=== PATIENT | male | born 1990 | race Caucasian/White ===

== ENCOUNTER 2023-12-10 21:44 | Inpatient (IN) | payer SELFPAY ==
[2023-12-10 21:51] VITALS: BMI 29.9
[2023-12-10 21:53] VITALS: BP 104/72; PULSE 68; RESP 18; TEMP 36.4; O2SAT 96
[2023-12-10 22:00] VITALS: BP 104/72; PULSE 68; RESP 18; TEMP 36.4; O2SAT 96
[2023-12-10] MEDS: trazodone 50 mg Tablet PO (22:50)
[2023-12-10] MEDS: hyDROXYzine 25 mg Capsule 50 MG PO (22:50)
[2023-12-10] MEDS: OLANZapine 5 mg ODT PO (22:50)
[2023-12-11 06:00] VITALS: BP 117/70; PULSE 79; RESP 16; TEMP 36.6; O2SAT 98
--- NOTE | 2023-12-11 08:06 | PC.NURSE ---
Nursing shift assessment During assessment, patient said that he is with [facility], [place] [facility] He has been with [facility] for 1.5 months. Patient endorses suicidal thoughts, with plan to shoot self. Patient endorses AH; onset was a couple of years ago. The voices tell him to shoot himself. Patient verbally contrasts for safety.
[2023-12-11] MEDS: nicotine 2 mg Gum BUCCAL ×2 (09:30→12:45)
[2023-12-11] MEDS: ARIPiprazole Maintena 400 MG IM (12:50)
--- NOTE | 2023-12-11 12:58 | PC.NURSE ---
Administered Abilify 400mg IM to patient's left ventrogluteal muscle. No adverse reactions. Patient tolerated well. EXP: Feb 2026 LOT: [id number]
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
[2023-12-11 14:00] VITALS: BP 111/71; PULSE 75; RESP 20; TEMP 36.4; O2SAT 97
[2023-12-11 20:05] VITALS: BP 115/62; PULSE 85; RESP 18; TEMP 37.1; O2SAT 97
[2023-12-11] MEDS: amitriptyline 25 mg Tablet PO (20:15)
[2023-12-12 06:00] VITALS: BP 105/70; PULSE 100; RESP 18; TEMP 36.7; O2SAT 98
[2023-12-12] MEDS: nicotine 2 mg Gum BUCCAL ×2 (10:06→16:51)
--- NOTE | 2023-12-12 10:39 | PC.NURSE ---
PATIENT REPORTS DIMINISHED AUDITORY HALLUCINATIONS. PATIENT RATES ANXIETY 3/10, DENIES SI, HI, AND ANXIETY. PATIENT'S GOAL FOR TODAY IS TO WORK ON HIS COPING SKILLS. PATIENT DENIES ANY NEEDS AT THIS TIME. COOPERATIVE DURING ASSESSMENT.
[2023-12-12 14:00] VITALS: BP 116/72; PULSE 75; RESP 20; TEMP 36.9; O2SAT 99
--- NOTE | 2023-12-12 15:48 | W.PM.NPUPNS ---
Subjective NPU Subjective: 33-year-old male admitted with suicidal ideation and auditory hallucinations of a command nature. He had endorsed a history of alcohol abuse as well but reported sobriety for over 3 months. He reported no cravings for alcohol. He had reported having problems with hallucinations that had been stabilized by Abilify Maintena but reports that at one time his psychiatrist had required to the patient to receive additional oral Abilify to complement his intramuscular Abilify. He had reported that the voices continued to be present. He had reported some improvement in sleep with the reinitiation of amitriptyline which had also been helpful he had stated with his depression. There was no episodes of aggression here on the unit. He was compliant and redirectable. Mental Status Exam MSE Comments: The patient is a pleasant tall, white healthy male who appeared his stated age with fair hygiene and good eye contact. There was no evidence of any abnormal involuntary motor movements tics or tremors appreciated. There was evidence of psychomotor retardation. His speech was monotone in quality and normal in volume with some evidence of increased latency and word finding problems noted. His mood was described as better. His affect was flat and mood incongruent. His thought process was linear, logical but at times circumstantial. His thought content showed evidence of suicidal ideation with no plan at this time. He denied any homicidal ideation. He did appear to be responding to internal stimuli and endorsed auditory hallucination. There is no clear evidence of delusional thinking. He was alert and oriented to person place along with year, month, but not day or day of the week. His attention span appeared poor. His insight is poor. His judgment is poor. His impulse control appeared limited. Vitals/I&O/Wt Last Vital Signs Temp 98.4 F 12/12/23 14:00 Pulse 75 12/12/23 14:00 Resp 20 H 12/12/23 14:00 BP 116/72 12/12/23 14:00 Pulse Ox 99 12/12/23 14:00 O2 Del Method Room Air 12/11/23 14:00 Weight last 48 hrs Weight 94.801 kg A&P Assessment and plan (1) Schizoaffective disorder, depressive type: (2) Auditory hallucinations: (3) Suicidal ideation: (4) Alcohol abuse: Plan 33-year-old male with a history of traumatic brain injury along with alcohol abuse currently endorsing command auditory hallucinations with suicidal ideation. This appears to be in the context of his recent absence of Abilify Maintena for over 3 to 4 weeks. #1.? Engage patient in individual milieu and group therapy.? #2? Encourage sober living treatment after discharge at the highest level of care to which he is willing to commit. #3??? CIWA for alcohol withdrawal despite abstinence reported for several months. #4?? TO-15 minute checks? #5?? Will attempt to gather collateral information-including neuropsychiatric testing. May benefit from disability. #6 Abilify Maintena 400mg IM given on 12/11/23. Add Abilify 5mg orally. #7 Continue Amitryptiline 25mg at night as previously used for depression and headaches. Involuntary Hold Information 96 Hour Hold: 96 Hour Involuntary Admission: No Attestations NPU Medical Necessity Statement*: Inpatient hospitalization is medically necessary and deemed to ?be ?the clinically appropriate intervention ?at this time.? We will monitor/initiate medications and make changes as indicated.? The patient?s likely length of stay 5-7 days. Coding Level of Care Code Acute Code for [facility] Fwd Diagnoses Schizoaffective disorder, depressive type F25.1 Auditory hallucinations R44.0 Suicidal ideation R45.851 Alcohol abuse F10.10
[2023-12-12] MEDS: ARIPiprazole 10 mg Tablet 5 MG PO (16:44)
[2023-12-12] MEDS: amitriptyline 25 mg Tablet PO (20:39)
[2023-12-12 22:00] VITALS: BP 118/76; PULSE 82; RESP 15; TEMP 36.6; O2SAT 97
[2023-12-13 06:00] VITALS: BP 94/61; PULSE 57; RESP 14; TEMP 36.4; O2SAT 95
[2023-12-13] MEDS: ARIPiprazole 10 mg Tablet 5 MG PO (08:37)
[2023-12-13 13:56] VITALS: BP 110/71; PULSE 72; RESP 18; TEMP 37.1; O2SAT 98
--- NOTE | 2023-12-13 17:45 | P.NPUPN_ITS ---
Subjective NPU Subjective: 33-year-old male admitted with suicidal ideation and auditory hallucinations of a command nature with history of TBI. The patient had reported that he frequently felt excessively tired and requested stimulants to help with attention and concentration. He had reported that the voices had continued but appeared to be quieter. He reported no side effects from the additional oral Abilify given. He reported no side effects from the Abilify Maintena. He had reported some improved sleep and reduction in headaches with the initiation of amitriptyline. Mental Status Exam MSE Comments: The patient is a pleasant tall, white healthy male who appeared his stated age with fair hygiene and good eye contact. There was no evidence of any abnormal involuntary motor movements tics or tremors appreciated. There was evidence of psychomotor retardation. His speech was monotone in quality and normal in volume with continued evidence of increased latency. His mood was described as better. His affect was flat and mood incongruent. His thought process was linear, logical but at times circumstantial. His thought content showed no evidence of suicidal ideation with no plan at this time. He denied any homicidal ideation. He did not appear to be responding to internal stimuli and endorsed auditory hallucination as being less intense. There is no clear evidence of delusional thinking. He was alert and oriented to person place along with year, month, but not day or day of the week. His attention span appeared poor. His insight is poor. His judgment is poor. His impulse control appeared limited. Vitals/I&O/Wt Last Vital Signs Temp 98.7 F 12/13/23 13:56 Pulse 72 12/13/23 13:56 Resp 18 12/13/23 13:56 BP 110/71 12/13/23 13:56 Pulse Ox 98 12/13/23 13:56 O2 Del Method Room Air 12/13/23 13:56 A&P Assessment and plan (1) Schizoaffective disorder, depressive type: (2) Auditory hallucinations: (3) Suicidal ideation: (4) Alcohol abuse: Plan 33-year-old male with a history of traumatic brain injury along with alcohol abuse currently endorsing command auditory hallucinations with suicidal ideation. This appears to be in the context of his recent absence of Abilify Maintena for over 3 to 4 weeks. #1.? Engage patient in individual milieu and group therapy.? #2? Encourage sober living treatment after discharge at the highest level of care to which he is willing to commit. #3??? CIWA for alcohol withdrawal despite abstinence reported for several months. #4?? TO-15 minute checks? #5?? Will attempt to gather collateral information-including neuropsychiatric testing. May benefit from disability. #6 Abilify Maintena 400mg IM given on 12/11/23. Add Abilify 5mg orally. #7 Increase Amitryptiline 50mg at night as previously used for depression and headaches. Involuntary Hold Information 96 Hour Hold: 96 Hour Involuntary Admission: No Attestations NPU Medical Necessity Statement*: Inpatient hospitalization is medically necessary and deemed to ?be ?the clinically appropriate intervention ?at this time.? We will monitor/initiate medications and make changes as indicated.? The patient?s likely length of stay 4-6 days. Coding Level of Care Code Acute Code for [facility] Fwd Diagnoses Schizoaffective disorder, depressive type F25.1 Auditory hallucinations R44.0 Suicidal ideation R45.851 Alcohol abuse F10.10
[2023-12-13 21:11] VITALS: BP 93/58; PULSE 63; RESP 14; TEMP 36.6; O2SAT 96
[2023-12-14 06:00] VITALS: BP 101/62; PULSE 74; RESP 15; O2SAT 97
[2023-12-14] MEDS: ARIPiprazole 10 mg Tablet PO (08:50)
[2023-12-14] MEDS: nicotine 2 mg Gum BUCCAL (08:50)
[2023-12-14 14:00] VITALS: BP 118/78; PULSE 84; RESP 16; TEMP 36.6; O2SAT 97
--- NOTE | 2023-12-14 14:44 | P.NPUPN_ITS ---
Subjective NPU Subjective: 33-year-old male admitted with suicidal ideation and auditory hallucinations of a command nature with history of TBI. The patient had reported that he felt more lightheaded after taking the additional amitriptyline yesterday. He had reported that it had dropped his blood pressure. He reported that he did not have insurance and stated that the Abilify Maintena had not been available to him due to cost and he was agreeable with remaining on oral Abilify if necessary when stabilized. He had reported that his uncle had and that he was wishing to speak with his father about attending his . He had denied any suicidal thoughts at this time. He had reported that he was considering going back to the [facility] facility to remain sober and the [place] area. Mental Status Exam MSE Comments: The patient is a pleasant tall, white healthy male who appeared his stated age with fair, hygiene and good eye contact. There was no evidence of any abnormal involuntary motor movements tics or tremors appreciated. There was evidence of psychomotor slowing. His speech was monotone in quality and normal in volume with continued evidence of increased latency in speech. His mood was described as okay. His affect was flat. His thought process was linear, logical but at times circumstantial. His thought content showed no evidence of suicidal ideation with no plan at this time. He denied any homicidal ideation. He did not appear to be responding to internal stimuli and endorsed auditory hallucination as being less intense. There is no clear evidence of delusional thinking. He was alert and oriented to person place and time. His attention span appeared poor. His insight is improving. His judgment is poor. His impulse control appeared better. Vitals/I&O/Wt Last Vital Signs Temp 97.8 F 12/14/23 14:00 Pulse 84 12/14/23 14:00 Resp 16 12/14/23 14:00 BP 118/78 12/14/23 14:00 Pulse Ox 97 12/14/23 14:00 O2 Del Method Room Air 12/14/23 06:00 A&P Assessment and plan (1) Schizoaffective disorder, depressive type: (2) Auditory hallucinations: (3) Suicidal ideation: (4) Alcohol abuse: Plan 33-year-old male with a history of traumatic brain injury along with alcohol abuse currently endorsing command auditory hallucinations with suicidal ideation. This appears to be in the context of his recent absence of Abilify Maintena for over 3 to 4 weeks. #1.? Engage patient in individual milieu and group therapy.? #2? Encourage sober living treatment after discharge at the highest level of care to which he is willing to commit. #3??? CIWA for alcohol withdrawal despite abstinence reported for several months. #4?? TO-15 minute checks? #5?? Will attempt to gather collateral information-including neuropsychiatric testing. May benefit from disability. #6 Abilify Maintena 400mg IM given on 12/11/23. Continue abilify 10mg daily. PLAN ON DISCHARGE would likely be to continue Oral Abilify at 15mg to target psychotic symptoms given that patient's maintena is not affordable currently. #7 Reduce amitryptiline to 25mg at night secondary to side effects. Involuntary Hold Information 96 Hour Hold: 96 Hour Involuntary Admission: No Attestations NPU Medical Necessity Statement*: Inpatient hospitalization is medically necessary and deemed to ?be ?the clinically appropriate intervention ?at this time.? We will monitor/initiate medications and make changes as indicated.? The patient?s likely length of stay 2-3 days. Coding Level of Care Code Acute Code for [facility] Fwd Diagnoses Schizoaffective disorder, depressive type F25.1 Auditory hallucinations R44.0 Suicidal ideation R45.851 Alcohol abuse F10.10
[2023-12-14] MEDS: trazodone 50 mg Tablet PO (20:30)
[2023-12-14] MEDS: hyDROXYzine 25 mg Capsule 50 MG PO (20:30)
[2023-12-14] MEDS: amitriptyline 25 mg Tablet PO (20:30)
[2023-12-14 20:38] VITALS: BP 102/64; PULSE 83; RESP 17; TEMP 36.7; O2SAT 97
[2023-12-15 06:00] VITALS: BP 99/62; PULSE 88; RESP 17; TEMP 36.4; O2SAT 96
[2023-12-15] MEDS: ARIPiprazole 10 mg Tablet PO (08:07)
[2023-12-15] MEDS: nicotine 2 mg Gum BUCCAL ×2 (08:07→11:47)
[2023-12-15 14:00] VITALS: BP 113/72; PULSE 70; RESP 18; TEMP 36.9; O2SAT 98
[2023-12-15 19:58] VITALS: BP 110/61; PULSE 80; RESP 18; TEMP 36.6; O2SAT 97
[2023-12-15] MEDS: trazodone 50 mg Tablet PO (20:12)
[2023-12-15] MEDS: amitriptyline 25 mg Tablet PO (20:12)
--- NOTE | 2023-12-15 20:56 | W.PM.NPUPNS ---
Subjective NPU Subjective: Patient presented today reporting that he is doing okay. He is a little frustrated that he did not get transferred to sober living today. Otherwise he reports that his medication is working effectively and he denied any side effects. We discussed the likelihood of discharge on Monday with the facilities return and start taking calls. Mental Status Exam MSE Comments: This is an overweight white male in hospital scrubs with limited grooming and eye contact. No abnormal movements except for mild psychomotor retardation. Cooperative with exam and no acute distress. Speech was slightly decreased rate and volume. Mood described as okay, affect slightly subdued. Thought process organized. Thought content: Patient denied suicidal or homicidal ideation, there were no delusions reported or noted, he denied any auditory or visual hallucinations. Attention and concentration are intact and memory is mostly reliable but none were formally tested. He is alert and oriented x 3. Insight and judgment are improving and impulse control is limited. Vitals/I&O/Wt Last Vital Signs Temp 97.9 F 12/15/23 19:58 Pulse 80 12/15/23 19:58 Resp 18 12/15/23 19:58 BP 110/61 12/15/23 19:58 Pulse Ox 97 12/15/23 19:58 O2 Del Method Room Air 12/15/23 19:58 A&P Assessment and plan (1) Schizoaffective disorder, depressive type: (2) Auditory hallucinations: (3) Suicidal ideation: (4) Alcohol abuse: Plan 33-year-old male with a history of traumatic brain injury along with alcohol abuse currently endorsing command auditory hallucinations with suicidal ideation. This appears to be in the context of his recent absence of Abilify Maintena for over 3 to 4 weeks. #1.? Engage patient in individual milieu and group therapy.? #2? Encourage sober living treatment after discharge at the highest level of care to which he is willing to commit. #3??? CIWA for alcohol withdrawal despite abstinence reported for several months. #4?? TO-15 minute checks? #5?? Will attempt to gather collateral information-including neuropsychiatric testing. May benefit from disability. #6 Abilify Maintena 400mg IM given on 12/11/23. Continue abilify 10mg daily. PLAN ON DISCHARGE would likely be to continue Oral Abilify at 15mg to target psychotic symptoms given that patient's maintena is not affordable currently. #7 Reduce amitryptiline to 25mg at night secondary to side effects. #8 likely discharge to sober living on Monday. Involuntary Hold Information 96 Hour Hold: 96 Hour Involuntary Admission: No Attestations NPU Medical Necessity Statement*: Inpatient hospitalization is medically necessary and?the clinically appropriate intervention at this time.? We will monitor/initiate medications and make changes as indicated.? The patient?s likely length of stay 3-4 days. Coding Level of Care Code Acute Code for [facility] Fwd Diagnoses Schizoaffective disorder, depressive type F25.1 Auditory hallucinations R44.0 Suicidal ideation R45.851 Alcohol abuse F10.10
[2023-12-16 06:00] VITALS: BP 108/62; PULSE 92; RESP 18; TEMP 36.6; O2SAT 97
[2023-12-16] MEDS: nicotine 2 mg Gum BUCCAL ×2 (08:29→14:13)
[2023-12-16] MEDS: ARIPiprazole 10 mg Tablet PO (08:30)
--- NOTE | 2023-12-16 09:35 | PC.NURSE ---
t states hearing voices right now and it is the Black Doctor who was here last night. when this rn vascular stated Sarthak he stated yes. Raymundo De León is being very disrespectful and I want to file a complaint against him can I speak with the Dr. above him? when I asked him what Dr. De León was saying Pt stated he is calling me a punk ass bitch and telling me He is [place] and that I am [place] and I want to talk with a Dr. above him.I explained to pt that Dr. De León is not in the hospital at this time so the possibility he is hearing his voice saying this is not plausible. then When I explained to him that Sarthak is the help desk assistant here at the hospital but he could speak with our marshmallow maker Nurse or Assistant Professor Sculpture if he would like pt stated no they are not above him and I need someone above him. at that time pt got up from the bed and left room. upone going to nurses station this anesthesiologist assistant informed Live Study Manager of pt condition. then left to go do further assessments of pts. pt at that time called me into room stated he wanted to talk with the rooming house operator because how would he know that Dr. De León was [place] unless he told him. I informed pt that Dr. De León was not [place] that he was with children and the pt then stated oh he is a pseudo [place] then , I need to file an complaint. attempted to explain to pt that Dr. De León Is not in the hospital at this time so there is no way he could be hearing him speak to him pt said well I know he is speaking to me. I want to talk with the rooming house operator. at that time I notified integrated logistics support manager who called Assistant Professor Sculpture. When she came Down We explained to Her the situation an that by her talking with the patient would help deescalate and reorientate him.
--- NOTE | 2023-12-16 12:08 | P.NPUPN_ITS ---
Subjective NPU Subjective: Patient presented today reporting that he was feeling okay and is hopeful that things automatic glove turner and former well on Monday. There were reports by staff that he was having some either dreams or intrusive thoughts that this teletypewriter installer was saying negative things about him or that he heard this teletypewriter installer's voice when I was not even in the hospital. He denied this on direct evaluation and denied any issues. He denied any side effects of medications either. Mental Status Exam MSE Comments: This is an overweight white male in hospital scrubs with limited grooming and eye contact. No abnormal movements except for mild psychomotor retardation. Cooperative with exam and no acute distress. Speech was slightly decreased rate and volume. Mood described as okay, affect slightly subdued. Thought process organized. Thought content: Patient denied suicidal or homicidal ideation, there were no delusions reported or noted, he denied any auditory or visual hallucinations. Attention and concentration are intact and memory is mostly reliable but none were formally tested. He is alert and oriented x 3. Insight and judgment are improving and impulse control is limited. Vitals/I&O/Wt Last Vital Signs Temp 97.8 F 12/16/23 06:00 Pulse 92 12/16/23 06:00 Resp 18 12/16/23 06:00 BP 108/62 12/16/23 06:00 Pulse Ox 97 12/16/23 06:00 O2 Del Method Room Air 12/16/23 06:00 A&P Assessment and plan (1) Schizoaffective disorder, depressive type: (2) Auditory hallucinations: (3) Suicidal ideation: (4) Alcohol abuse: Plan 33-year-old male with a history of traumatic brain injury along with alcohol abu se currently endorsing command auditory hallucinations with suicidal ideation. This appears to be in the context of his recent absence of Abilify Maintena for over 3 to 4 weeks. #1.? Engage patient in individual milieu and group therapy.? #2? Encourage sober living treatment after discharge at the highest level of care to which he is willing to commit. #3??? CIWA for alcohol withdrawal despite abstinence reported for several months. #4?? TO-15 minute checks? #5?? Will attempt to gather collateral information-including neuropsychiatric testing. May benefit from disability. #6 Abilify Maintena 400mg IM given on 8/5/24. Continue abilify 10mg daily. PLAN ON DISCHARGE would likely be to continue Oral Abilify at 15mg to target psychotic symptoms given that patient's maintena is not affordable currently. #7 Reduce amitryptiline to 25mg at night secondary to side effects. #8 likely discharge to sober living on Monday. Involuntary Hold Information 96 Hour Hold: 96 Hour Involuntary Admission: No Attestations NPU Medical Necessity Statement*: Inpatient hospitalization is medically necessary and?the clinically appropriate intervention at this time.? We will monitor/initiate medications and make changes as indicated.? The patient?s likely length of stay 2-4 days. Coding Level of Care Code Acute Code for [facility] Diagnoses Schizoaffective disorder, depressive type F25.1 Auditory hallucinations R44.0 Suicidal ideation R45.851 Alcohol abuse F10.10
[2023-12-16 14:00] VITALS: BP 124/77; PULSE 88; RESP 18; TEMP 36.6; O2SAT 98
[2023-12-16] MEDS: trazodone 50 mg Tablet PO (20:13)
[2023-12-16] MEDS: amitriptyline 25 mg Tablet PO (20:13)
[2023-12-16 20:39] VITALS: BP 122/76; PULSE 89; RESP 17; TEMP 36.7; O2SAT 98
[2023-12-17 06:00] VITALS: BP 101/57; PULSE 77; RESP 15; TEMP 36.6; O2SAT 97
[2023-12-17] MEDS: ARIPiprazole 10 mg Tablet PO (08:59)
--- NOTE | 2023-12-17 09:13 | W.PM.NPUPNS ---
Subjective NPU Subjective: Patient presented today reporting that he is doing okay. He was being more social and was out on the unit playing cards with other patients. He had another episode of feeling like he was experiencing some voice projections from this mortgage or loan underwriter but he was able to work through that and even interact with this mortgage or loan underwriter out on the unit in a positive way for an extended period of time. He is reporting that his medication is working fine without issue. He denied any side effects to his medication and we discussed the possibility of discharge tomorrow. Mental Status Exam MSE Comments: This is an overweight white male in hospital scrubs with limited grooming and eye contact. No abnormal movements except for mild psychomotor retardation. Cooperative with exam and no acute distress. Speech was slightly decreased rate and volume. Mood described as okay, affect slightly subdued. Thought process organized. Thought content: Patient denied suicidal or homicidal ideation, there were no delusions reported or noted, he denied any auditory or visual hallucinations. Attention and concentration are intact and memory is mostly reliable but none were formally tested. He is alert and oriented x 3. Insight and judgment are improving and impulse control is limited. Vitals/I&O/Wt Last Vital Signs Temp 97.9 F 12/17/23 06:00 Pulse 77 12/17/23 06:00 Resp 15 12/17/23 06:00 BP 101/57 12/17/23 06:00 Pulse Ox 97 12/17/23 06:00 O2 Del Method Room Air 12/17/23 06:00 Weight last 48 hrs Weight 88.36 kg A&P Assessment and plan (1) Schizoaffective disorder, depressive type: (2) Auditory hallucinations: (3) Suicidal ideation: (4) Alcohol abuse: Plan 33-year-old male with a history of traumatic brain injury along with alcohol abuse currently endorsing command auditory hallucinations with suicidal ideation. This appears to be in the context of his recent absence of Abilify Maintena for over 3 to 4 weeks. #1.? Engage patient in individual milieu and group therapy.? #2? Encourage sober living treatment after discharge at the highest level of care to which he is willing to commit. #3??? CIWA for alcohol withdrawal despite abstinence reported for several months. #4?? TO-15 minute checks? #5?? Will attempt to gather collateral information-including neuropsychiatric testing. May benefit from disability. #6 Abilify Maintena 400mg IM given on 12/11/23. Continue abilify 10mg daily. PLAN ON DISCHARGE would likely be to continue Oral Abilify at 15mg to target psychotic symptoms given that patient's maintena is not affordable currently. #7 Reduce amitryptiline to 25mg at night secondary to side effects. #8 likely discharge to sober living on Monday. Involuntary Hold Information 96 Hour Hold: 96 Hour Involuntary Admission: No Attestations NPU Medical Necessity Statement*: Inpatient hospitalization is medically necessary and?the clinically appropriate intervention at this time.? We will monitor/initiate medications and make changes as indicated.? The patient?s likely length of stay 2-4 days. Coding Level of Care Code Acute Code for [facility] Fwd Diagnoses Schizoaffective disorder, depressive type F25.1 Auditory hallucinations R44.0 Suicidal ideation R45.851 Alcohol abuse F10.10
[2023-12-17 14:00] VITALS: BP 111/75; PULSE 81; RESP 16; TEMP 36.5; O2SAT 97
--- NOTE | 2023-12-17 15:54 | PC.NURSE ---
pt states hearing voices right now and it is the Black Doctor who was here last night. Pt did calm down and quit talking about this, pt did not wish to take any meds to help with the voices.
[2023-12-17] MEDS: trazodone 50 mg Tablet PO (20:10)
[2023-12-17] MEDS: amitriptyline 25 mg Tablet PO (20:13)
[2023-12-18 06:00] VITALS: BP 121/76; PULSE 82; RESP 18; TEMP 36.8; O2SAT 97
[2023-12-18] MEDS: ARIPiprazole 10 mg Tablet PO ×2 (07:40→15:38)
[2023-12-18] MEDS: nicotine 2 mg Gum BUCCAL (07:40)
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
[2023-12-18 13:47] VITALS: BP 110/73; PULSE 81; RESP 16; TEMP 36.5; O2SAT 97
[2023-12-18] MEDS: OLANZapine 5 mg ODT PO (15:38)
[2023-12-18 21:54] VITALS: BP 104/63; PULSE 78; RESP 15; O2SAT 96
--- NOTE | 2023-12-18 22:25 | W.PM.NPUPNS ---
Subjective NPU Subjective: Patient presented today reporting that he is doing okay. He continued to have some experiences that he relayed to staff but not to this screenplay writer. We discussed the risks, benefits and alternatives of increasing his Abilify oral to 20 mg p.o. daily and continuing with the cross cover and he understood and agreed to proceed as is documented in this note. We discussed trying to identify whether or not he would be able to get the injection or not and planning accordingly at discharge. He denied any side effects of the medication. Mental Status Exam MSE Comments: This is an overweight white male in hospital scrubs with limited grooming and eye contact. No abnormal movements except for mild psychomotor retardation. Cooperative with exam and no acute distress. Speech was slightly decreased rate and volume. Mood described as okay, affect slightly subdued. Thought process organized. Thought content: Patient denied suicidal or homicidal ideation, there were no delusions reported or noted, he denied any auditory or visual hallucinations. Attention and concentration are intact and memory is mostly reliable but none were formally tested. He is alert and oriented x 3. Insight and judgment are improving and impulse control is limited. Vitals/I&O/Wt Last Vital Signs Temp 97.7 F 12/18/23 13:47 Pulse 78 12/18/23 21:54 Resp 15 12/18/23 21:54 BP 104/63 12/18/23 21:54 Pulse Ox 96 12/18/23 21:54 O2 Del Method Room Air 12/18/23 21:54 A&P Assessment and plan (1) Schizoaffective disorder, depressive type: (2) Auditory hallucinations: (3) Suicidal ideation: (4) Alcohol abuse: Plan 33-year-old male with a history of traumatic brain injury along with alcohol abuse currently endorsing command auditory hallucinations with suicidal ideation. This appears to be in the context of his recent absence of Abilify Maintena for over 3 to 4 weeks. #1.? Engage patient in individual milieu and group therapy.? #2? Encourage sober living treatment after discharge at the highest level of care to which he is willing to commit. #3??? CIWA for alcohol withdrawal despite abstinence reported for several months. #4?? TO-15 minute checks? #5?? Will attempt to gather collateral information-including neuropsychiatric testing. May benefit from disability. #6 Abilify Maintena 400mg IM given on 12/11/23. Continue abilify 10mg daily. Increase to 20 mg. Will plan on coadministration of oral Abilify until 12/25/2023. PLAN ON DISCHARGE would likely be to continue Oral Abilify at 15mg to target psychotic symptoms given that patient's maintena is not affordable currently. #7 Reduce amitryptiline to 25mg at night secondary to side effects. #8 likely discharge to sober living on Monday. Involuntary Hold Information 96 Hour Hold: 96 Hour Involuntary Admission: No Attestations NPU Medical Necessity Statement*: Inpatient hospitalization is medically necessary and?the clinically appropriate intervention at this time.? We will monitor/initiate medications and make changes as indicated.? The patient?s likely length of stay 2-4 days. Coding Level of Care Code Acute Code for [facility] Fwd Diagnoses Schizoaffective disorder, depressive type F25.1 Auditory hallucinations R44.0 Suicidal ideation R45.851 Alcohol abuse F10.10
[2023-12-19 06:00] VITALS: BP 110/72; PULSE 60; RESP 16; TEMP 36.7; O2SAT 98
--- NOTE | 2023-12-19 08:27 | PC.NURSE ---
Patient irritable this morning. He stated he is hearing the black doctor's son calling him a faggot . He asked, he's got two kids. How else would I know that? Patient said he did not plan on hurting anyone, but that he wasn't gonna put up with that shit . He denies si/hi and vh.
[2023-12-19] MEDS: ARIPiprazole 10 mg Tablet 20 MG PO (09:05)
[2023-12-19] MEDS: nicotine 2 mg Gum BUCCAL ×2 (12:06→20:11)
[2023-12-19 14:00] VITALS: BP 92/63; PULSE 81; RESP 17; TEMP 36.6; O2SAT 98
--- NOTE | 2023-12-19 16:20 | P.NPUPN_ITS ---
Subjective NPU Subjective: Patient presented today reporting that he was fine initially but then for the first time reported to this race and sports book writer that topics that he had been bringing up to other staff. Staff continue to report delusional beliefs related to this race and sports book writer and my family. He advised me that I needed to speak to my son and then my son with no what the topic was about. Then went on to say that it was illegal to share his information with my family and talked about possibly getting a panel saw operator to [facility] by phone to improve his point. Mental Status Exam MSE Comments: This is an overweight white male in hospital scrubs with limited grooming and eye contact. No abnormal movements except for mild psychomotor retardation. Cooperative with exam and no acute distress. Speech was slightly decreased rate and volume. Mood described as okay, affect slightly subdued. Thought process organized. Thought content: Patient denied suicidal or homicidal ideation, there were no delusions reported but he did endorse believing that somehow he was aware that this race and sports book writer was communicating with my children on text about his HIPAA protected information, he denied visual hallucinations, however he did report auditory hallucinations related to this race and sports book writer. Attention and concentration are intact and memory is mostly reliable but none were formally tested. He is alert and oriented x 3. Insight and judgment are improving and impulse control is limited. Vitals/I&O/Wt Last Vital Signs Temp 97.9 F 12/19/23 14:00 Pulse 81 12/19/23 14:00 Resp 17 12/19/23 14:00 BP 92/63 12/19/23 14:00 Pulse Ox 98 12/19/23 14:00 O2 Del Method Room Air 12/19/23 14:00 A&P Assessment and plan (1) Schizoaffective disorder, depressive type: (2) Auditory hallucinations: (3) Suicidal ideation: (4) Alcohol abuse: Plan 33-year-old male with a history of traumatic brain injury along with alcohol abuse currently endorsing command auditory hallucinations with suicidal ideation. This appears to be in the context of his recent absence of Abilify Maintena for over 3 to 4 weeks. #1.? Engage patient in individual milieu and group therapy.? #2? Encourage sober living treatment after discharge at the highest level of care to which he is willing to commit. #3??? CIWA for alcohol withdrawal despite abstinence reported for several months. #4?? TO-15 minute checks? #5?? Will attempt to gather collateral information-including neuropsychiatric testing. May benefit from disability. #6 Abilify Maintena 400mg IM given on 12/11/23. Continue abilify 10mg daily. Increase to 20 mg. Will plan on coadministration of oral Abilify until 12/25/2023. PLAN ON DISCHARGE would likely be to continue Oral Abilify at 15mg to target psychotic symptoms given that patient's maintena is not affordable currently. #7 Reduce amitryptiline to 25mg at night secondary to side effects. #8 Concerns for ongoing psychosis with some worsening will consider 96-hour hold. Involuntary Hold Information 96 Hour Hold: 96 Hour Involuntary Admission: No Attestations NPU Medical Necessity Statement*: Inpatient hospitalization is medically necessary and?the clinically appropriate intervention at this time.? We will monitor/initiate medications and make changes as indicated.? The patient?s likely length of stay 2-4 days. Coding Level of Care Code Acute Code for [facility]wd Diagnoses Schizoaffective disorder, depressive type F25.1 Auditory hallucinations R44.0 Suicidal ideation R45.851 Alcohol abuse F10.10
[2023-12-19 19:28] VITALS: BP 102/70; PULSE 80; RESP 17; TEMP 36.3; O2SAT 94
[2023-12-19] MEDS: amitriptyline 25 mg Tablet PO (20:11)
[2023-12-19] MEDS: trazodone 50 mg Tablet PO (20:11)
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
[2023-12-20 06:00] VITALS: PULSE 93; RESP 18; TEMP 36.4; O2SAT 98
--- NOTE | 2023-12-20 06:30 | PC.NURSE ---
As this CRAP GAME BOX PERSON and a COLOR MATCHER were attempting to take pt vitals, pt asked where is that n*gger doctor? Pt was informed that the doctor was not present and usually arrives to the unit around mid morning time to which pt then got agitated and stated well I know he his here, because I can hear him and I want to go home. Pt was told he would have to talk with the doctor about discharge when he arrives to the unit which agitated the pt and he proceded to rip the blood pressure cuff / pulse ox off and threw them down and stomp off.
[2023-12-20] MEDS: ARIPiprazole 10 mg Tablet 20 MG PO (08:28)
--- NOTE | 2023-12-20 08:34 | PC.NURSE ---
pt stating I am still hearing voices but I thinks I always will because when I was in [facility], there was a nurse there who knew about the voices that were put there by the individuals who puts bugs inside to gather information and she said the only way you can get the voices to stop is through surgery but I dont want to do that.
[2023-12-20] MEDS: nicotine 2 mg Gum BUCCAL ×3 (11:07→18:17)
[2023-12-20 12:42] VITALS: BP 151/82; PULSE 81; RESP 16; TEMP 36.5; O2SAT 99
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
[2023-12-20 19:40] VITALS: BP 121/75; PULSE 75; RESP 16; TEMP 36.7; O2SAT 99
[2023-12-20] MEDS: amitriptyline 25 mg Tablet PO (21:34)
[2023-12-21 06:00] VITALS: BP 92/62; PULSE 82; RESP 17; TEMP 36.6; O2SAT 98
[2023-12-21] MEDS: OLANZapine 5 mg ODT PO (08:49)
[2023-12-21] MEDS: ARIPiprazole 10 mg Tablet 20 MG PO (08:49)
--- NOTE | 2023-12-21 10:13 | PC.NURSE ---
IN BED RESTING AROUSES TO VOICE. PT DENIES PAIN. DENIES SI/HI AND VH AT THIS TIME. PT CONTINUES TO ENDORSE HEARING VOICES THAT ARE NEGATIVE IN NATURE. PT WAS OFFERED MEDICATIONS TO DECREASE THE VOICES AND ANXIETY IT CAUSES. PT DID ACCEPT AND MED NURSE GAVE ZYDIS 5 MG ORDERED FOR ANXIETY. RATES ANXIETY 0/10 AND DEPRESSION 0/10. SUPPORT VOICED.
--- NOTE | 2023-12-21 12:05 | W.PM.NPUPNS ---
Subjective NPU Subjective: Patient presented today reporting that he is fine except for the fact that he feels continued persecution by this promotion writer and his family. He could not really talk to this promotion writer for a long without signs of his irritability and anger surfacing. He continued to say that this promotion writer needed to talk to my son because of what BMI son are doing to him. Mental Status Exam MSE Comments: This is an overweight white male in hospital scrubs with limited grooming and eye contact. No abnormal movements except for mild psychomotor retardation. Cooperative with exam and no acute distress. Speech was slightly decreased rate and volume. Mood described as okay, affect slightly subdued. Thought process organized. Thought content: Patient denied suicidal or homicidal ideation, there were no delusions reported but he did endorse believing that somehow he was aware that this promotion writer was communicating with my children on text about his HIPAA protected information, he denied visual hallucinations, however he did report auditory hallucinations related to this promotion writer. Attention and concentration are intact and memory is mostly reliable but none were formally tested. He is alert and oriented x 3. Insight and judgment are improving and impulse control is limited. Vitals/I&O/Wt Last Vital Signs Temp 97.9 F 12/21/23 06:00 Pulse 82 12/21/23 06:00 Resp 17 12/21/23 06:00 BP 92/62 12/21/23 06:00 Pulse Ox 98 12/21/23 06:00 O2 Del Method Room Air 12/20/23 12:42 A&P Assessment and plan (1) Schizoaffective disorder, depressive type: (2) Auditory hallucinations: (3) Suicidal ideation: (4) Alcohol abuse: Plan 33-year-old male with a history of traumatic brain injury along with alcohol abuse currently endorsing command auditory hallucinations with suicidal ideation. This appears to be in the context of his recent absence of Abilify Maintena for over 3 to 4 weeks. #1.? Engage patient in individual milieu and group therapy.? #2? Encourage sober living treatment after discharge at the highest level of care to which he is willing to commit. #3??? CIWA for alcohol withdrawal despite abstinence reported for several months. #4?? TO-15 minute checks? #5?? Will attempt to gather collateral information-including neuropsychiatric testing. May benefit from disability. #6 Abilify Maintena 400mg IM given on 12/11/23. Continue abilify 10mg daily. Increase to 20 mg. Will plan on coadministration of oral Abilify until 12/25/2023. PLAN ON DISCHARGE would likely be to continue Oral Abilify at 15mg to target psychotic symptoms given that patient's maintena is not affordable currently. May need to consider Invega or some other oral agent and switching over from the Abilify. #7 Reduce amitryptiline to 25mg at night secondary to side effects. #8 Concerns for ongoing psychosis with some worsening will consider 96-hour hold. Involuntary Hold Information 96 Hour Hold: 96 Hour Involuntary Admission: No Attestations NPU Medical Necessity Statement*: Inpatient hospitalization is medically necessary and?the clinically appropriate intervention at this time.? We will monitor/initiate medications and make changes as indicated.? The patient?s likely length of stay 2-4 days. Coding Level of Care Code Acute Code for [facility] Fwd Diagnoses Schizoaffective disorder, depressive type F25.1 Auditory hallucinations R44.0 Suicidal ideation R45.851 Alcohol abuse F10.10
--- NOTE | 2023-12-21 13:34 | PC.NURSE ---
PT REQUESTED PRN MEDICATION TO ASSIST HIM WITH HIS VOICES. PT STATED THAT THE ZYPREXA HELPED HIM THE MOST. THIS NURSE ADMINISTERED 5MG ZYPREXA SUBLINGUAL. UPON REASSESSMENT PT ENDORSE FEELING MORE CALM AND LESS AGITATED.
[2023-12-21 13:40] VITALS: BP 108/70; PULSE 88; RESP 16; TEMP 36.6; O2SAT 98
[2023-12-21 20:12] VITALS: BP 103/58; PULSE 91; RESP 17; TEMP 36.7; O2SAT 97
[2023-12-21] MEDS: amitriptyline 25 mg Tablet PO (20:48)
[2023-12-22 06:00] VITALS: BP 106/68; PULSE 103; RESP 18; TEMP 36.8; O2SAT 99
[2023-12-22] MEDS: haloperidol 5 mg Tablet PO (08:31)
[2023-12-22] MEDS: ARIPiprazole 10 mg Tablet 20 MG PO (08:31)
[2023-12-22] MEDS: nicotine 2 mg Gum BUCCAL ×3 (08:54→16:07)
--- NOTE | 2023-12-22 09:00 | PC.NURSE ---
IN BED RESTING. PT DENIES PAIN. DENIES SI/HI AND VH AT THIS TIME. PT CONTINUES TO ENDORSE AUDITORY HALLUCINATIONS THAT ARE NEGATIVE IN NATURE AND AT TIMES COMMANDING. PT IS EVASIVE WITH ASSESSMENT. RATES ANXIETY AND DEPRESSION 0/10. PT REQUESTS MEDICATIONS FOR MY VOICES, THE HALDOL HELPED. PT WAS GIVEN HALDOL 5 MG FOR INCREASED ANXIETY FROM HEARING VOICES. ALL QUESTIONS ANSWERED AND SUPPORT VOICED.
--- NOTE | 2023-12-22 13:54 | P.NPUPN_ITS ---
Subjective NPU Subjective: Patient presented today reporting that he was feeling a little better. When asked directly about thoughts about this freelance copywriter and this freelance copywriter's son he reports that he was not thinking that way today. He seemed to be able to remain calm around the subject matter today per staff reports and direct observation. He reports feeling like maybe the medications just finally working. He denied any side effects of the medication. Mental Status Exam MSE Comments: This is an overweight white male in hospital scrubs with limited grooming and eye contact. No abnormal movements except for mild psychomotor retardation. Cooperative with exam and no acute distress. Speech was slightly decreased rate and volume. Mood described as okay, affect slightly subdued. Thought process organized. Thought content: Patient denied suicidal or homicidal ideation, there were no delusions reported but he did endorse believing that somehow he was aware that this freelance copywriter was communicating with my children on text about his HIPAA protected information, he denied visual hallucinations, however he did report auditory hallucinations related to this freelance copywriter. Attention and concentration are intact and memory is mostly reliable but none were formally tested. He is alert and oriented x 3. Insight and judgment are improving and impulse control is limited. Vitals/I&O/Wt Last Vital Signs Temp 98.3 F 12/22/23 06:00 Pulse 103 H 12/22/23 06:00 Resp 18 12/22/23 06:00 BP 106/68 12/22/23 06:00 Pulse Ox 99 12/22/23 06:00 O2 Del Method Room Air 12/20/23 12:42 A&P Assessment and plan (1) Schizoaffective disorder, depressive type: (2) Auditory hallucinations: (3) Suicidal ideation: (4) Alcohol abuse: Plan 33-year-old male with a history of traumatic brain injury along with alcohol abuse currently endorsing command auditory hallucinations with suicidal ideation. This appears to be in the context of his recent absence of Abilify Maintena for over 3 to 4 weeks. #1.? Engage patient in individual milieu and group therapy.? #2? Encourage sober living treatment after discharge at the highest level of care to which he is willing to commit. #3??? CIWA for alcohol withdrawal despite abstinence reported for several months. #4?? TO-15 minute checks? #5?? Will attempt to gather collateral information-including neuropsychiatric testing. May benefit from disability. #6 Abilify Maintena 400mg IM given on 12/11/23. Continue abilify 10mg daily. Increase to 20 mg. Will plan on coadministration of oral Abilify until 12/25/2023. PLAN ON DISCHARGE would likely be to continue Oral Abilify at 15mg to target psychotic symptoms given that patient's maintena is not affordable currently. May need to consider Invega or some other oral agent and switching over from the Abilify. #7 Reduce amitryptiline to 25mg at night secondary to side effects. #8 Concerns for ongoing psychosis with some worsening will consider 96-hour hold. Involuntary Hold Information 96 Hour Hold: 96 Hour Involuntary Admission: No Attestations NPU Medical Necessity Statement*: Inpatient hospitalization is medically necessary and?the clinically appropriate intervention at this time.? We will monitor/initiate medications and make changes as indicated.? The patient?s likely length of stay 2-4 days. Coding Level of Care Code Acute Code for g Fwd Diagnoses Schizoaffective disorder, depressive type F25.1 Auditory hallucinations R44.0 Suicidal ideation R45.851 Alcohol abuse F10.10
[2023-12-22 14:00] VITALS: BP 120/74; PULSE 92; RESP 16; TEMP 36.6; O2SAT 99
--- NOTE | 2023-12-22 20:46 | PC.NURSE ---
Refused Elavil: Patient stated he did not want to take this evenings Elavil.
[2023-12-22 21:27] VITALS: BP 119/81; PULSE 99; RESP 18; TEMP 36.7; O2SAT 97
[2023-12-23 06:00] VITALS: BP 106/74; PULSE 82; RESP 16; TEMP 36.4; O2SAT 97
[2023-12-23] MEDS: ARIPiprazole 10 mg Tablet 20 MG PO (08:58)
[2023-12-23] MEDS: haloperidol 5 mg Tablet PO (08:58)
--- NOTE | 2023-12-23 09:14 | PC.NURSE ---
IN BED SITTING. PT IS NOTED TO HAVE FLAT AFFECT AND GUARDED WITH STAFF. PT DENIES PAIN. DENIES SI/HI9 AND VH A T THIS TIME. PT CONTINUES TO ENDORSE HEARING MY VOICES, LIKE 210 TODAY BUT I CAN HEAR THEM. MAYBE I CAN TAKE THAT HALDOL IT SEEMS TO HELP. MED NURSE WAS NOTIFIED TO GIVE PRN DOSE OF HALDOL 5 MG FOR INCREASED ANXIETY DUE TO VOICES. RATES ANXIETY 8/10 AND DEPRESSION 0/10. PT STATES HIS GOAL FOR THE DAY IS TO GET MY LIST OF PLACES AND CALL THEM TO SEE IF I CAN GO THERE WHEN I LEAVE HERE. PT DID REFUSE ELAVIL LAST NIGHT AT BEDTIME BUT REPORTS HE SLEPT WELL. ALL QUESTIONS ANSWERED AND SUPPORT WAS VOICED.
[2023-12-23] MEDS: nicotine 2 mg Gum BUCCAL (10:31)
[2023-12-23 14:00] VITALS: BP 109/73; PULSE 87; RESP 17; O2SAT 96
--- NOTE | 2023-12-23 14:17 | P.NPUPN_ITS ---
Subjective NPU Subjective: Patient presented today reporting that he is feeling better. He reports doing okay in general and identified that he was no longer having any extra sensory perceptions about this content writer or my son. He reports that he feels the medications are helpful and he denied any side effects of the medication. We discussed being hopeful that when the treatment team returns on Monday that we can get him in the direction of one of the sober living programs. Mental Status Exam MSE Comments: This is an overweight white male in hospital scrubs with limited grooming and eye contact. No abnormal movements except for mild psychomotor retardation. Cooperative with exam and no acute distress. Speech was slightly decreased rate and volume. Mood described as okay, affect slightly subdued. Thought process organized. Thought content: Patient denied suicidal or homicidal ideation, there were no delusions reported and he also denied any extra sensory perceptions about this content writer or by son in relation to his treatment or anything else. Attention and concentration are intact and memory is mostly reliable but none were formally tested. He is alert and oriented x 3. Insight and judgment are improving and impulse control is limited. Vitals/I&O/Wt Last Vital Signs Temp 97.5 F L 12/23/23 06:00 Pulse 82 12/23/23 06:00 Resp 16 12/23/23 06:00 BP 106/74 12/23/23 06:00 Pulse Ox 97 12/23/23 06:00 O2 Del Method Room Air 12/23/23 06:00 A&P Assessment and plan (1) Schizoaffective disorder, depressive type: (2) Auditory hallucinations: (3) Suicidal ideation: (4) Alcohol abuse: Plan 33-year-old male with a history of traumatic brain injury along with alcohol abuse currently endorsing command auditory hallucinations with suicidal ideation. This appears to be in the context of his recent absence of Abilify Maintena for over 3 to 4 weeks. #1.? Engage patient in individual milieu and group therapy.? #2? Encourage sober living treatment after discharge at the highest level of care to which he is willing to commit. #3??? CIWA for alcohol withdrawal despite abstinence reported for several months. #4?? TO-15 minute checks? #5?? Will attempt to gather collateral information-including neuropsychiatric testing. May benefit from disability. #6 Abilify Maintena 400mg IM given on 12/11/23. Continue abilify 10mg daily. Increase to 20 mg. Will plan on coadministration of oral Abilify until 12/25/2023. PLAN ON DISCHARGE would likely be to continue Oral Abilify at 15mg to target psychotic symptoms given that patient's maintena is not affordable currently. May need to consider Invega or some other oral agent and switching over from the Abilify. #7 Reduce amitryptiline to 25mg at night secondary to side effects. #8 Concerns for ongoing psychosis with some worsening will consider 96-hour hold. Involuntary Hold Information 96 Hour Hold: 96 Hour Involuntary Admission: No Attestations NPU Medical Necessity Statement*: Inpatient hospitalization is medically necessary and?the clinically appropriate intervention at this time.? We will monitor/initiate medications and make changes as indicated.? The patient?s likely length of stay 2-4 days. Coding Level of Care Code Acute Code for [facility] Diagnoses Schizoaffective disorder, depressive type F25.1 Auditory hallucinations R44.0 Suicidal ideation R45.851 Alcohol abuse F10.10
[2023-12-23] MEDS: amitriptyline 25 mg Tablet PO (20:14)
[2023-12-23 21:35] VITALS: BP 102/64; PULSE 112; RESP 18; TEMP 36.7; O2SAT 97
[2023-12-24 06:00] VITALS: BP 103/64; PULSE 77; RESP 16; TEMP 36.4; O2SAT 96
[2023-12-24] MEDS: ARIPiprazole 10 mg Tablet 20 MG PO (08:25)
--- NOTE | 2023-12-24 13:51 | W.PM.NPUPNS ---
Subjective NPU Subjective: Patient presented today reporting that he is feeling better. He continues to deny any psychotic content related to this customs entry writer or my family. He continues to report an openness to finding some sober living facility to continue his sobriety. He denied any side effects to the medication and we discussed working with the social work team tomorrow towards figuring out his situation. Mental Status Exam MSE Comments: This is an overweight white male in hospital scrubs with limited grooming and eye contact. No abnormal movements except for mild psychomotor retardation. Cooperative with exam and no acute distress. Speech was slightly decreased rate and volume. Mood described as okay, affect slightly subdued. Thought process organized. Thought content: Patient denied suicidal or homicidal ideation, there were no delusions reported and he also denied any extra sensory perceptions about this customs entry writer or by son in relation to his treatment or anything else. Attention and concentration are intact and memory is mostly reliable but none were formally tested. He is alert and oriented x 3. Insight and judgment are improving and impulse control is limited. Vitals/I&O/Wt Last Vital Signs Temp 97.6 F 12/24/23 06:00 Pulse 77 12/24/23 06:00 Resp 16 12/24/23 06:00 BP 103/64 12/24/23 06:00 Pulse Ox 96 12/24/23 06:00 O2 Del Method Room Air 12/24/23 06:00 Weight last 48 hrs Weight 87.26 kg A&P Assessment and plan (1) Schizoaffective disorder, depressive type: (2) Auditory hallucinations: (3) Suicidal ideation: (4) Alcohol abuse: Plan 33-year-old male with a history of traumatic brain injury along with alcohol abuse currently endorsing command auditory hallucinations with suicidal ideation. This appears to be in the context of his recent absence of Abilify Maintena for over 3 to 4 weeks. #1.? Engage patient in individual milieu and group therapy.? #2? Encourage sober living treatment after discharge at the highest level of care to which he is willing to commit. #3??? CIWA for alcohol withdrawal despite abstinence reported for several months. #4?? TO-15 minute checks? #5?? Will attempt to gather collateral information-including neuropsychiatric testing. May benefit from disability. #6 Abilify Maintena 400mg IM given on 12/11/23. Continue abilify 10mg daily. Increase to 20 mg. Will plan on coadministration of oral Abilify until 12/25/2023. PLAN ON DISCHARGE would likely be to continue Oral Abilify at 15mg to target psychotic symptoms given that patient's maintena is not affordable currently. May need to provide oral Abilify if we do not have a plan for him getting his Abilify injection. #7 Reduce amitryptiline to 25mg at night secondary to side effects. Involuntary Hold Information 96 Hour Hold: 96 Hour Involuntary Admission: No Attestations NPU Medical Necessity Statement*: Inpatient hospitalization is medically necessary and?the clinically appropriate intervention at this time.? We will monitor/initiate medications and make changes as indicated.? The patient?s likely length of stay 1-3 days. Coding Level of Care Code Acute Code for [facility] Fwd Diagnoses Schizoaffective disorder, depressive type F25.1 Auditory hallucinations R44.0 Suicidal ideation R45.851 Alcohol abuse F10.10
[2023-12-24 14:00] VITALS: BP 113/66; PULSE 91; RESP 17; TEMP 36.8; O2SAT 96
--- NOTE | 2023-12-24 19:57 | PC.NURSE ---
Dr. De León ordered d/c of po abilify d/t being day 14 after shot. NO recieved and noted.
--- NOTE | 2023-12-24 20:24 | PC.NURSE ---
Pt is refusing amytriptilline stating a medicine gave him a headache and made him pass out .
[2023-12-24 21:37] VITALS: BP 94/64; PULSE 101; RESP 18; TEMP 36.4; O2SAT 97
[2023-12-25 06:00] VITALS: BP 111/75; PULSE 81; RESP 16; O2SAT 95
[2023-12-25 14:00] VITALS: BP 94/71; PULSE 94; RESP 16; TEMP 36.8; O2SAT 96
--- NOTE | 2023-12-25 14:41 | PC.NURSE ---
Dr. De León requested this RN try to contact the patient's doctor who prescribed his antipsychotics to see if he had ever taken invega before. This RN contacted them and the laboratory secretary stated she would have to leave a message with his nurse.
[2023-12-25] MEDS: nicotine 2 mg Gum BUCCAL (17:55)
[2023-12-25 19:40] VITALS: BP 111/68; PULSE 81; RESP 18; TEMP 36.6; O2SAT 96
--- NOTE | 2023-12-25 20:40 | P.NPUPN_ITS ---
Subjective NPU Subjective: Patient presents today reporting that he is okay but he did make a call to report once again that this public relations writer and possibly my son are somehow communicating with him when we are not around and somehow inappropriately discussing and engaging in his medical treatment. His irritability increases during these discussions per staff reports and direct observation. He denied any problems with his medication. Mental Status Exam MSE Comments: This is an overweight white male in hospital scrubs with limited grooming and eye contact. No abnormal movements except for mild psychomotor retardation. Cooperative with exam and no acute distress. Speech was slightly decreased rate and volume. Mood described as okay, affect slightly subdued. Thought process organized. Thought content: Patient denied suicidal or homicidal ideation, there were no delusions reported but he has resumed reporting extra sensory perceptions about this public relations writer and or my son somehow communicating with him when we are not around. Attention and concentration are intact and memory is mostly reliable but none were formally tested. He is alert and oriented x 3. Insight and judgment are impaired and impulse control is limited versus impaired. Vitals/I&O/Wt Last Vital Signs Temp 97.8 F 12/25/23 19:40 Pulse 81 12/25/23 19:40 Resp 18 12/25/23 19:40 BP 111/68 12/25/23 19:40 Pulse Ox 96 12/25/23 19:40 O2 Del Method Room Air 12/25/23 06:00 Weight last 48 hrs Weight 87.26 kg A&P Assessment and plan (1) Schizoaffective disorder, depressive type: (2) Auditory hallucinations: (3) Suicidal ideation: (4) Alcohol abuse: Plan 33-year-old male with a history of traumatic brain injury along with alcohol abuse currently endorsing command auditory hallucinations with suicidal ideation. This appears to be in the context of his recent absence of Abilify Maintena for over 3 to 4 weeks. #1.? Engage patient in individual milieu and group therapy.? #2? Encourage sober living treatment after discharge at the highest level of care to which he is willing to commit. #3??? CIWA for alcohol withdrawal despite abstinence reported for several months. #4?? TO-15 minute checks? #5?? Will attempt to gather collateral information-including neuropsychiatric testing. May benefit from disability. #6 Abilify Maintena 400mg IM given on 12/11/23. Continue abilify 10mg daily. Increase to 20 mg. Will plan on coadministration of oral Abilify until 12/25/2023. PLAN ON DISCHARGE would likely be to continue Oral Abilify at 15mg to target psychotic symptoms given that patient's maintena is not affordable currently. May need to provide oral Abilify if we do not have a plan for him getting his Abilify injection. Discontinued oral Abilify. Some collateral information reveals that he may have had success on Invega Sustenna. Will have to consider transitioning to Invega based on continued psychosis. #7 Reduce amitryptiline to 25mg at night secondary to side effects. Involuntary Hold Information 96 Hour Hold: 96 Hour Involuntary Admission: No Attestations NPU Medical Necessity Statement*: Inpatient hospitalization is medically necessary and?the clinically appropriate intervention at this time.? We will monitor/initiate medications and make changes as indicated.? The patient?s likely length of stay 5-7 days. Coding Level of Care Code Acute Code for g Fwd Diagnoses Schizoaffective disorder, depressive type F25.1 Auditory hallucinations R44.0 Suicidal ideation R45.851 Alcohol abuse F10.10
--- NOTE | 2023-12-25 20:40 | PC.NURSE ---
Patient is refusing to take 2100 medication (Amitriptyline) stating I am trying to weed out my meds, so I just do not feel like taking that is a good idea . Dr. De León notified.
[2023-12-26 06:00] VITALS: BP 103/70; PULSE 84; RESP 16; TEMP 36.6; O2SAT 96
[2023-12-26] MEDS: nicotine 2 mg Gum BUCCAL ×3 (07:43→15:46)
[2023-12-26 14:00] VITALS: BP 101/66; PULSE 112; RESP 18; TEMP 36.8; O2SAT 97
[2023-12-26 20:01] VITALS: BP 114/74; PULSE 78; RESP 18; O2SAT 97
--- NOTE | 2023-12-26 21:43 | P.NPUPN_ITS ---
Subjective NPU Subjective: Patient presented today reporting that he is feeling better. He is not reporting issues with delusional perceptions about this conventional underwriter or my son again per staff reports and direct observation. He was able to interact with this conventional underwriter without incident and started talking about rehab and trying to move forward with his life. We discussed maintaining him on the Abilify since he is feeling better but considering Invega as an option if those thoughts were to return. He denied any side effects to the medication. Mental Status Exam MSE Comments: This is an overweight white male in hospital scrubs with limited grooming and eye contact. No abnormal movements except for mild psychomotor retardation. Cooperative with exam and no acute distress. Speech was slightly decreased rate and volume. Mood described as okay, affect slightly subdued. Thought process organized. Thought content: Patient denied suicidal or homicidal ideation, there were no delusions reported but he is back to denying extra sensory perceptions about this conventional underwriter and or my son somehow communicating with him when we are not around. Attention and concentration are intact and memory is mostly reliable but none were formally tested. He is alert and oriented x 3. Insight and judgment are impaired and impulse control is limited versus impaired. Vitals/I&O/Wt Last Vital Signs Temp 98.2 F 12/26/23 14:00 Pulse 78 12/26/23 20:01 Resp 18 12/26/23 20:01 BP 114/74 12/26/23 20:01 Pulse Ox 97 12/26/23 20:01 O2 Del Method Room Air 12/25/23 06:00 A&P Assessment and plan (1) Schizoaffective disorder, depressive type: (2) Auditory hallucinations: (3) Suicidal ideation: (4) Alcohol abuse: Plan 33-year-old male with a history of traumatic brain injury along with alcohol abuse currently endorsing command auditory hallucinations with suicidal ideation. This appears to be in the context of his recent absence of Abilify Maintena for over 3 to 4 weeks. #1.? Engage patient in individual milieu and group therapy.? #2? Encourage sober living treatment after discharge at the highest level of care to which he is willing to commit. #3??? CIWA for alcohol withdrawal despite abstinence reported for several months. #4?? TO-15 minute checks? #5?? Will attempt to gather collateral information-including neuropsychiatric testing. May benefit from disability. #6 Abilify Maintena 400mg IM given on 12/11/23. Continue abilify 10mg daily. Increase to 20 mg. Will plan on coadministration of oral Abilify until 12/25/2023. PLAN ON DISCHARGE would likely be to continue Oral Abilify at 15mg to target psychotic symptoms given that patient's maintena is not affordable currently. May need to provide oral Abilify if we do not have a plan for him getting his Abilify injection. Discontinued oral Abilify. Some collateral information reveals that he may have had success on Invega Sustenna. Will have to consider transitioning to Invega based on continued psychosis. We will continue the Abilify for now. #7 Reduce amitryptiline to 25mg at night secondary to side effects. Involuntary Hold Information 96 Hour Hold: 96 Hour Involuntary Admission: No Attestations NPU Medical Necessity Statement*: Inpatient hospitalization is medically necessary and?the clinically appropriate intervention at this time.? We will monitor/initiate medications and make changes as indicated.? The patient?s likely length of stay 3-5 days. Coding Level of Care Code Acute Code for [facility] Fwd Diagnoses Schizoaffective disorder, depressive type F25.1 Auditory hallucinations R44.0 Suicidal ideation R45.851 Alcohol abuse F10.10
[2023-12-27 06:00] VITALS: BP 113/67; PULSE 91; RESP 16; TEMP 36.3; O2SAT 96
[2023-12-27] MEDS: nicotine 2 mg Gum BUCCAL ×2 (09:12→14:52)
--- NOTE | 2023-12-27 10:34 | PC.NURSE ---
This headline writer was given orders to place pt on a 96 hour hold. Pt was read his rights by this headline writer at 1030. Security was present.
[2023-12-27 14:00] VITALS: BP 111/74; PULSE 91; RESP 17; TEMP 36.7; O2SAT 98
--- NOTE | 2023-12-27 16:16 | W.PM.NPUPNS ---
Subjective NPU Subjective: Patient presented today continuing to struggle with psychosis. He continued to feel that he is hearing voices of this ad copy writer and at times my son. He once again reported that he was upset because even 1 communication with my son is a HIPAA violation. I once again assured him that I never speak to my children about my patients. He once again felt that that had to be occurring because how else could he know that I had a bhatt son in college. I assured him that my son was not in college in [place] and that it would be impossible for him to hear his voice from 13 hours away. It appears to be surrounding clot that he had. He reports he started having these thoughts while he was working in [employer] and was feeling that people were paying special attention to him because he was the most attractive sap developer. Mental Status Exam MSE Comments: This is an overweight white male in hospital scrubs with limited grooming and eye contact. No abnormal movements except for mild psychomotor retardation. Cooperative with exam and no acute distress. Speech was slightly decreased rate and volume. Mood described as okay, affect slightly subdued. Thought process organized. Thought content: Patient denied suicidal or homicidal ideation, there were no delusions reported but he is back to endorsing extra sensory perceptions about this ad copy writer and or my son somehow communicating with him when we are not around. Attention and concentration are intact and memory is mostly reliable but none were formally tested. He is alert and oriented x 3. Insight and judgment are impaired and impulse control is limited versus impaired. Vitals/I&O/Wt Last Vital Signs Temp 98.0 F 12/27/23 14:00 Pulse 91 12/27/23 14:00 Resp 17 12/27/23 14:00 BP 111/74 12/27/23 14:00 Pulse Ox 98 12/27/23 14:00 O2 Del Method Room Air 12/25/23 06:00 A&P Assessment and plan (1) Schizoaffective disorder, depressive type: (2) Auditory hallucinations: (3) Suicidal ideation: (4) Alcohol abuse: Plan 33-year-old male with a history of traumatic brain injury along with alcohol abuse currently endorsing command auditory hallucinations with suicidal ideation. This appears to be in the context of his recent absence of Abilify Maintena for over 3 to 4 weeks. #1.? Engage patient in individual milieu and group therapy.? #2? Encourage sober living treatment after discharge at the highest level of care to which he is willing to commit. #3??? CIWA for alcohol withdrawal despite abstinence reported for several months. #4?? TO-15 minute checks? #5?? Will attempt to gather collateral information-including neuropsychiatric testing. May benefit from disability. #6 Abilify Maintena 400mg IM given on 12/11/23. Continue abilify 10mg daily. Increase to 20 mg. Will plan on coadministration of oral Abilify until 12/25/2023. PLAN ON DISCHARGE would likely be to continue Oral Abilify at 15mg to target psychotic symptoms given that patient's maintena is not affordable currently. May need to provide oral Abilify if we do not have a plan for him getting his Abilify injection. Discontinued oral Abilify. Some collateral information reveals that he may have had success on Invega Sustenna. Will have to consider transitioning to Invega based on continued psychosis. We will continue the Abilify for now. #7 Initiated 96-hour hold due to psychosis regarding this ad copy writer and my son that he believes he is hearing. He continues to endorse concerns that my son placed a chip in the water at some college in [place] that somehow got into him. Involuntary Hold Information 96 Hour Hold: 96 Hour Involuntary Admission: No Attestations NPU Medical Necessity Statement*: Inpatient hospitalization is medically necessary and?the clinically appropriate intervention at this time.? We will monitor/initiate medications and make changes as indicated.? The patient?s likely length of stay 3-5 days. Coding Level of Care Code Acute Code for [facility] Fwd Diagnoses Schizoaffective disorder, depressive type F25.1 Auditory hallucinations R44.0 Suicidal ideation R45.851 Alcohol abuse F10.10
[2023-12-27] MEDS: trazodone 50 mg Tablet PO (20:16)
[2023-12-27 20:21] VITALS: BP 109/69; PULSE 88; RESP 16; TEMP 36.3; O2SAT 96
[2023-12-28 06:00] VITALS: BP 105/67; PULSE 77; RESP 18; TEMP 36.4; O2SAT 97
--- NOTE | 2023-12-28 08:50 | PC.NURSE ---
IN BED SITTING, PT STATES HE DID NOT SLEEP WELL LAST NIGHT AT ALL. PT REQUEST THAT DR. GUTIERREZ BE NOTIFIED. PT ASSURED THAT RN WOULD ATTEMPT TO GET ORDERS FOR SLEEP DURING THE MEETING TODAY. DENIES SI/HI AND AVH AT THIS TIME. RATES ANXIETY AND DEPRESSION 0/10. AFFECT IS FLAT, SPEECH IS SLOW TO RESPOND. DENIES PAIN. P0T STATES HE GOALS FOR THE DAY IS TO CATCH A NAP AND REST. PT IS NOTED TO BE WITHDRAWN AT TIMES AND ISOLATES TO ROOM. ALL QUESTIONS ANSWERED AND SUPPORT WAALEX VOICED.
--- NOTE | 2023-12-28 13:16 | PC.NURSE ---
NEW ORDERS RECEIVED TO START SEROQUEL 50 MG PO QHS FOR INSOMNIA. PT EDUCATED ON NEW ORDERS. VERBALIZED UNDERSTANDING. SUPPORT VOICED.
[2023-12-28 13:51] VITALS: BP 114/75; PULSE 83; RESP 16; TEMP 36.3; O2SAT 98
--- NOTE | 2023-12-28 14:19 | P.NPUPN_ITS ---
Subjective NPU Subjective: Patient presented today reporting that he is feeling a little better. We were able to talk about concerns regarding delusional content without noteworthy irritability or anger or needing to leave the room. We discussed the importance of having this resolved prior to him having to go to places where there will be different personalities and people. He reported understanding this situation and denied any side effects to medications. Mental Status Exam MSE Comments: This is an overweight white male in hospital scrubs with limited grooming and eye contact. No abnormal movements except for mild psychomotor retardation. Cooperative with exam and no acute distress. Speech was slightly decreased rate and volume. Mood described as okay, affect slightly subdued. Thought process organized. Thought content: Patient denied suicidal or homicidal ideation, there were no delusions reported but he is back to endorsing extra sensory perceptions about this telegraphic typewriter mechanic and or my son somehow communicating with him when we are not around. Attention and concentration are intact and memory is mostly reliable but none were formally tested. He is alert and oriented x 3. Insight and judgment are impaired and impulse control is limited versus impaired. Vitals/I&O/Wt Last Vital Signs Temp 97.4 F L 12/28/23 13:51 Pulse 83 12/28/23 13:51 Resp 16 12/28/23 13:51 BP 114/75 12/28/23 13:51 Pulse Ox 98 12/28/23 13:51 O2 Del Method Room Air 12/25/23 06:00 A&P Assessment and plan (1) Schizoaffective disorder, depressive type: (2) Auditory hallucinations: (3) Suicidal ideation: (4) Alcohol abuse: Plan 33-year-old male with a history of traumatic brain injury along with alcohol abuse currently endorsing command auditory hallucinations with suicidal ideation. This appears to be in the context of his recent absence of Abilify Maintena for over 3 to 4 weeks. #1.? Engage patient in individual milieu and group therapy.? #2? Encourage sober living treatment after discharge at the highest level of care to which he is willing to commit. #3??? CIWA for alcohol withdrawal despite abstinence reported for several months. #4?? TO-15 minute checks? #5?? Will attempt to gather collateral information-including neuropsychiatric testing. May benefit from disability. #6 Abilify Maintena 400mg IM given on 12/11/23. Continue abilify 10mg daily. Increase to 20 mg. Will plan on coadministration of oral Abilify until 12/25/2023. PLAN ON DISCHARGE would likely be to continue Oral Abilify at 15mg to target psychotic symptoms given that patient's maintena is not affordable currently. May need to provide oral Abilify if we do not have a plan for him getting his Abilify injection. Discontinued oral Abilify. Some collateral information reveals that he may have had success on Invega Sustenna. Will have to consider transitioning to Invega based on continued psychosis. We will continue the Abilify for now. #7 Initiated 96-hour hold due to psychosis regarding this telegraphic typewriter mechanic and my son that he believes he is hearing. He continues to endorse concerns that my son placed a chip in the water at some college in [place] that somehow got into him. Endorsing lessening irritability surrounding these issues. Involuntary Hold Information 96 Hour Hold: 96 Hour Involuntary Admission: No Attestations NPU Medical Necessity Statement*: Inpatient hospitalization is medically necessary and?the clinically appropriate intervention at this time.? We will monitor/initiate medications and make changes as indicated.? The patient?s likely length of stay 3-5 days. Coding Level of Care Code Acute Code for g Fwd Diagnoses Schizoaffective disorder, depressive type F25.1 Auditory hallucinations R44.0 Suicidal ideation R45.851 Alcohol abuse F10.10
[2023-12-28 19:30] VITALS: BP 117/74; PULSE 79; RESP 19; TEMP 36.4; O2SAT 97
[2023-12-28] MEDS: quetiapine 25 mg Tablet 50 MG PO (21:38)
[2023-12-29 06:00] VITALS: BP 103/72; PULSE 96; RESP 18; TEMP 37; O2SAT 98
[2023-12-29] MEDS: nicotine 2 mg Gum BUCCAL (08:36)
[2023-12-29 14:00] VITALS: BP 116/75; PULSE 82; RESP 20; TEMP 36.6; O2SAT 97
--- NOTE | 2023-12-29 18:03 | W.PM.NPUPNS ---
Subjective NPU Subjective: Patient presented today continuing to report slow improvement. Staff deny significant conversations about concerns about this short story writer or my son and he continued to appear to be less challenged by this short story writer's presence. We talked about hopefully being able to move along to a sober living facility next week. And he denied any side effects to the medication. Mental Status Exam MSE Comments: This is an overweight white male in hospital scrubs with limited grooming and eye contact. No abnormal movements except for mild psychomotor retardation. Cooperative with exam and no acute distress. Speech was slightly decreased rate and volume. Mood described as okay, affect slightly subdued. Thought process organized. Thought content: Patient denied suicidal or homicidal ideation, there were no delusions reported but he is back to endorsing extra sensory perceptions about this short story writer and or my son somehow communicating with him when we are not around. Attention and concentration are intact and memory is mostly reliable but none were formally tested. He is alert and oriented x 3. Insight and judgment are impaired and impulse control is limited versus impaired. Vitals/I&O/Wt Last Vital Signs Temp 98 F 12/29/23 14:00 Pulse 82 12/29/23 14:00 Resp 20 H 12/29/23 14:00 BP 116/75 12/29/23 14:00 Pulse Ox 97 12/29/23 14:00 O2 Del Method Room Air 12/29/23 06:00 Involuntary Hold Information 96 Hour Hold: 96 Hour Involuntary Admission: No Attestations NPU Medical Necessity Statement*: Inpatient hospitalization is medically necessary and?the clinically appropriate intervention at this time.? We will monitor/initiate medications and make changes as indicated.? The patient?s likely length of stay 3-5 days. Coding Level of Care Code Acute Code for Gary Fwlizbeth
[2023-12-29 20:09] VITALS: BP 112/73; PULSE 85; RESP 18; TEMP 36.6; O2SAT 96
[2023-12-29] MEDS: quetiapine 25 mg Tablet 50 MG PO (21:13)
[2023-12-30 00:13] VITALS: BP 104/70; PULSE 84; RESP 17; TEMP 36.6; O2SAT 97
[2023-12-30 04:00] VITALS: BP 106/69; PULSE 59; RESP 15; TEMP 36.4; O2SAT 98
--- NOTE | 2023-12-30 07:50 | P.NPUPN_ITS ---
Subjective NPU Subjective: Patient presented today reporting that he is doing fine. He seemed to be having a better time on the unit as he has developed some watery with another patient per staff reports direct observation. He continued to deny any issues related to thinking about this process description writer or my son speaking to him when we are not around. He continued to endorse a desire to follow through with sober living treatment with hopes of being discharged next week. We discussed Dr. Damon coming tomorrow and managing his treatment moving forward. He denied any side effects to the medication. Mental Status Exam MSE Comments: This is an overweight white male in hospital scrubs with limited grooming and eye contact. No abnormal movements except for mild psychomotor retardation. Cooperative with exam and no acute distress. Speech was slightly decreased rate and volume. Mood described as okay, affect slightly subdued. Thought process organized. Thought content: Patient denied suicidal or homicidal ideation, there were no delusions reported but he is back to endorsing extra sensory perceptions about this process description writer and or my son somehow communicating with him when we are not around. Attention and concentration are intact and memory is mostly reliable but none were formally tested. He is alert and oriented x 3. Insight and judgment are impaired and impulse control is limited versus impaired. Vitals/I&O/Wt Last Vital Signs Temp 97.6 F 12/30/23 04:00 Pulse 59 L 12/30/23 04:00 Resp 15 12/30/23 04:00 BP 106/69 12/30/23 04:00 Pulse Ox 98 12/30/23 04:00 O2 Del Method Room Air 12/30/23 04:00 A&P Assessment and plan (1) Schizoaffective disorder, depressive type: (2) Auditory hallucinations: (3) Suicidal ideation: (4) Alcohol abuse: Plan 33-year-old male with a history of traumatic brain injury along with alcohol abuse currently endorsing command auditory hallucinations with suicidal ideation. This appears to be in the context of his recent absence of Abilify Maintena for over 3 to 4 weeks. #1.? Engage patient in individual milieu and group therapy.? #2? Encourage sober living treatment after discharge at the highest level of care to which he is willing to commit. #3??? CIWA for alcohol withdrawal despite abstinence reported for several months. #4?? TO-15 minute checks? #5?? Will attempt to gather collateral information-including neuropsychiatric testing. May benefit from disability. #6 Abilify Maintena 400mg IM given on 12/11/23. Continue abilify 10mg daily. Increase to 20 mg. Will plan on coadministration of oral Abilify until 12/25/2023. PLAN ON DISCHARGE would likely be to continue Oral Abilify at 15mg to target psychotic symptoms given that patient's maintena is not affordable currently. May need to provide oral Abilify if we do not have a plan for him getting his Abilify injection. Discontinued oral Abilify. Some collateral information reveals that he may have had success on Invega Sustenna. Will have to consider transitioning to Invega based on continued psychosis. We will continue the Abilify for now. #7 Initiated 96-hour hold due to psychosis regarding this process description writer and my son that he believes he is hearing. He continues to endorse concerns that my son placed a chip in the water at some college in [place] that somehow got into him. Endorsing lessening irritability surrounding these issues. Involuntary Hold Information 96 Hour Hold: 96 Hour Involuntary Admission: No Attestations NPU Medical Necessity Statement*: Inpatient hospitalization is medically necessary and?the clinically appropriate intervention at this time.? We will monitor/initiate medications and make changes as indicated.? The patient?s likely length of stay 3-5 days. Coding Level of Care Code Acute Code for [facility] Fwd Diagnoses Schizoaffective disorder, depressive type F25.1 Auditory hallucinations R44.0 Suicidal ideation R45.851 Alcohol abuse F10.10
[2023-12-30 07:53] VITALS: BP 114/81; PULSE 89; RESP 18; TEMP 36.5; O2SAT 99
[2023-12-30 12:00] VITALS: BP 116/75; PULSE 75; RESP 18; TEMP 36.9; O2SAT 96
[2023-12-30 16:00] VITALS: BP 110/70; PULSE 93; RESP 18; TEMP 36.9; O2SAT 94
[2023-12-30] MEDS: nicotine 2 mg Gum BUCCAL (17:43)
[2023-12-30 19:33] VITALS: BP 122/76; PULSE 74; RESP 18; TEMP 36.4; O2SAT 96
[2023-12-31] VITALS: BP 100/65; PULSE 71; RESP 18; TEMP 36.4; O2SAT 98
[2023-12-31 04:00] VITALS: BP 120/81; PULSE 81; RESP 18; TEMP 36.5; O2SAT 97
[2023-12-31 06:00] VITALS: BMI 27.6
[2023-12-31 08:00] VITALS: BP 103/61; PULSE 87; RESP 18; TEMP 36.5; O2SAT 97
[2023-12-31] MEDS: nicotine 2 mg Gum BUCCAL (10:53)
[2023-12-31 11:49] VITALS: BP 123/88; PULSE 97; RESP 16; TEMP 36.8; O2SAT 98
[2023-12-31 16:00] VITALS: RESP 18
--- NOTE | 2023-12-31 16:00 | PC.NURSE ---
Patient becoming angry because he asked for a snack and staff let him know it was not snack time yet, but that dinner would be here in about an hour. He then began accusing this RN of giving other patients snacks moments before he asked, which was not the case. Patient then began saying the nurses were letting patients out that threw up KKK signs and that he didn't understand how we let those type of people go but not him. This RN attempted to explain to him that only the doctor could make the decision to discharge patients. Attempted to redirect patient multiple times, but he kept repeating himself. Patient is now on the phone with someone and was overheard saying, they're letting these other assholes go and there's other people in here that are normal. They're not letting me go!
--- NOTE | 2023-12-31 17:32 | P.NPUPN_ITS ---
Subjective NPU Subjective: 33-year-old male admitted with suicidal ideation and auditory hallucinations of a command nature with history of TBI. The patient had reported that he was feeling better and stated that he had things to do when he left here. He had admitted that he had been having unusual thoughts regarding the previous physicians son stating that he somehow felt as if he could hear his voice in his head from far away. He reported no side effects from his Abilify Maintena. He had stated that he was sleeping better with the Seroquel. He reports no depressed mood and no suicidal ideation. Patient reports that he would like to leave the hospital soon. Mental Status Exam MSE Comments: This is a healthy tall white male in hospital scrubs with limited grooming and eye contact. No abnormal movements except for mild psychomotor retardation. He was cooperative with exam and no acute distress. His speech was slightly decreased in rate and normal in volume. Mood described as allright. His affect was slightly subdued. Thought process was linear and organized. Thought content: Patient denied suicidal or homicidal ideation, there were no overt delusions reported today to this scientific technical writer. Attention and concentration are intact and memory is mostly reliable but none were formally tested. He is alert and oriented x 3. Insight and judgment remain limited and impulse control is limited versus impaired. Vitals/I&O/Wt Last Vital Signs Temp 98.3 F 12/31/23 11:49 Pulse 97 12/31/23 11:49 Resp 18 12/31/23 16:00 BP 123/88 12/31/23 11:49 Pulse Ox 98 12/31/23 11:49 O2 Del Method Room Air 12/31/23 11:49 Weight last 48 hrs Weight 87.26 kg A&P Assessment and plan (1) Schizoaffective disorder, depressive type: (2) Auditory hallucinations: (3) Suicidal ideation: (4) Alcohol abuse: Plan 33-year-old male with a history of traumatic brain injury along with alcohol abuse currently endorsing command auditory hallucinations with suicidal ideation. This appears to be in the context of his recent absence of Abilify Maintena for over 3 to 4 weeks. #1.? Engage patient in individual milieu and group therapy.? #2? Encourage sober living treatment after discharge at the highest level of care to which he is willing to commit. #3??? CIWA for alcohol withdrawal despite abstinence reported for several months. #4?? TO-15 minute checks? #5?? Will attempt to gather collateral information-including neuropsychiatric testing. May benefit from disability. #6 Abilify Maintena 400mg IM given on 12/11/23. Continue abilify 10mg daily. Increase to 20 mg. Will plan on coadministration of oral Abilify until 12/25/2023. PLAN ON DISCHARGE would likely be to continue Oral Abilify at 15mg to target psychotic symptoms given that patient's maintena is not affordable currently. May need to provide oral Abilify if we do not have a plan for him getting his Abilify injection. Discontinued oral Abilify. Some collateral information reveals that he may have had success on Invega Sustenna. Will have to consider transitioning to Invega based on continued psychosis. We will continue the Abilify for now. #7 96 hour hold initiated although the patient does not appear to be distracted or preoccupied by these delusions today. Involuntary Hold Information 96 Hour Hold: 96 Hour Involuntary Admission: No Attestations NPU Medical Necessity Statement*: Inpatient hospitalization is medically necessary and?the clinically appropriate intervention at this time.? We will monitor/initiate medications and make changes as indicated.? The patient?s likely length of stay is 3-5 days. Coding Level of Care Code Acute Code for g Fwd Diagnoses Schizoaffective disorder, depressive type F25.1 Auditory hallucinations R44.0 Suicidal ideation R45.851 Alcohol abuse F10.10
[2023-12-31 20:00] VITALS: BP 108/64; PULSE 72; RESP 18; TEMP 36.3; O2SAT 97
[2023-12-31] MEDS: quetiapine 25 mg Tablet 50 MG PO (20:00)
[2024-01-01] VITALS: BP 97/68; PULSE 57; RESP 17; TEMP 36.5; O2SAT 97
[2024-01-01 04:00] VITALS: BP 97/69; PULSE 74; RESP 16; TEMP 36.9; O2SAT 97
[2024-01-01 08:00] VITALS: BP 105/65; PULSE 84; RESP 16; TEMP 36.8; O2SAT 97
--- NOTE | 2024-01-01 08:59 | PC.NURSE ---
IN BED. PT DENIES PAIN. DENIES SI/HI AT THIS TIME. PT IS NOTED TO HAVE A FLAT AFFECT AND DEPRESSED MOOD. PT STATES HE IS HEARING VOICES AND SEEING THINGS BUT NO MORE THAN USUAL. PT WOULD NOT ELABORATE ON STATEMENT. DECLINES MEDICATIONS TO DECREASE ANXIETY DUE TO VOICED. RATES DEPRESSION AND ANXIETY 0/10. PT STATES GOAL TODAY IS TO LEAVE. PT STATES HE SLEPT WELL LAST SHIFT. ALL QUESTIONS ANSWERED AND SUPPORT WAS VOICED.
[2024-01-01] MEDS: nicotine 2 mg Gum BUCCAL (11:42)
[2024-01-01 12:00] VITALS: BP 109/78; PULSE 82; RESP 17; TEMP 36.8; O2SAT 96
[2024-01-01 13:03] LABS: SARS Covid-2 Antigen Negative (Negative)
[2024-01-01] MEDS: ARIPiprazole Maintena 400 MG IM (14:30)
--- NOTE | 2024-01-01 15:19 | W.PM.NPUPNS ---
Subjective NPU Subjective: 33-year-old male admitted with suicidal ideation and auditory hallucinations of a command nature with history of TBI. The patient reports that he had been hearing voices intermittently but stated that he was motivated to go to [place] and began work. He reported no paranoia. He did not appear to be actively preoccupied by hearing other people's thoughts as had been previously reported a few days earlier. He reported no side effects from his Abilify Maintena that he had been receiving every 3 weeks successfully in the past. He reported no alcohol withdrawal symptoms and reported no cravings for alcohol at this time. Mental Status Exam MSE Comments: This is a healthy tall white male in hospital scrubs with limited grooming and eye contact. No abnormal movements except for mild psychomotor retardation. He was cooperative with exam and no acute distress. His speech was slightly decreased in rate and normal in volume. Mood described as allright. His affect was blunted. Thought process was linear and organized. Thought content: Patient denied suicidal or homicidal ideation, there were no overt delusions reported today to this entry writer. Attention and concentration are intact and memory is mostly reliable but none were formally tested. He is alert and oriented x 3. Insight and judgment remain limited and impulse control is limited versus impaired. Vitals/I&O/Wt Last Vital Signs Temp 98.3 F 01/01/24 12:00 Pulse 82 01/01/24 12:00 Resp 17 01/01/24 12:00 BP 109/78 01/01/24 12:00 Pulse Ox 96 01/01/24 12:00 O2 Del Method Room Air 01/01/24 04:00 Weight last 48 hrs Weight 87.26 kg A&P Assessment and plan (1) Schizoaffective disorder, depressive type: (2) Auditory hallucinations: (3) Suicidal ideation: (4) Alcohol abuse: Plan 33-year-old male with a history of traumatic brain injury along with alcohol abuse currently endorsing command auditory hallucinations with suicidal ideation. This appears to be in the context of his recent absence of Abilify Maintena for over 3 to 4 weeks. #1.? Engage patient in individual milieu and group therapy.? #2? Encourage sober living treatment after discharge at the highest level of care to which he is willing to commit. #3??? CIWA for alcohol withdrawal despite abstinence reported for several months. #4?? TO-15 minute checks? #5?? Will attempt to gather collateral information-including neuropsychiatric testing. May benefit from disability. #6 Abilify Maintena 400mg IM given today on 01/01/24. Patient may require oral abilify 20mg in lieu of IM if patient has not had medicaid approve this medication in one month. #7 Patient appears more stable with likely discharge tommorow. Involuntary Hold Information 96 Hour Hold: 96 Hour Involuntary Admission: No Attestations NPU Medical Necessity Statement*: Inpatient hospitalization is medically necessary and?the clinically appropriate intervention at this time.? We will monitor/initiate medications and make changes as indicated.? The patient?s likely length of stay is 1-2 days. Coding Level of Care Code Acute Code for g Fwd Diagnoses Schizoaffective disorder, depressive type F25.1 Auditory hallucinations R44.0 Suicidal ideation R45.851 Alcohol abuse F10.10
[2024-01-01 16:00] VITALS: BP 99/69; PULSE 78; RESP 17; TEMP 36.6; O2SAT 98
[2024-01-01 20:00] VITALS: BP 111/55; PULSE 100; RESP 18; TEMP 36.5; O2SAT 95
[2024-01-01] MEDS: quetiapine 25 mg Tablet 50 MG PO (20:49)
[2024-01-02] VITALS: BP 103/65; PULSE 89; RESP 16; TEMP 36.8; O2SAT 93
[2024-01-02 04:00] VITALS: BP 97/61; PULSE 81; RESP 18; TEMP 36.4; O2SAT 96
[2024-01-02 08:00] VITALS: BP 122/81; PULSE 90; RESP 17; TEMP 36.7; O2SAT 99
[2024-01-02 08:42] VITALS: BP 122/81; PULSE 98; RESP 17; TEMP 37.1; O2SAT 99
[2024-01-02] MEDS: nicotine 2 mg Gum BUCCAL (08:50)
[2024-01-02 10:30] VITALS: BP 122/81; PULSE 98; RESP 17; TEMP 37.1; O2SAT 99
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
== END 2024-01-02 11:51 | disposition home or self-care (01) | DRG 885 ==
PROVIDERS: Admitting Provider Psychiatry & Neurology Psychiatry; Visit Provider Psychiatry & Neurology Psychiatry
DX: F25.1 Schizoaffective disorder, depressive type (principal); R45.851 Suicidal ideations; F10.10 Alcohol abuse, uncomplicated
CPT/HCPCS: 87426; 96372; 97150; 97165; 97167